=== PATIENT | male | born 1960 | race Caucasian/White ===

== ENCOUNTER → 2017-04-12 | Day surgery (SDC) | payer BC ==
[~2017-04-12] MED LIST: ASPI-130 PO; GENTAMICIN SULFATE 80 MG/2 ML VIAL ONE; KETOROLAC TROMETHAMINE 30 MG/ML (IVP) VIAL IV PUSH ONE; LACTATED RINGER'S 1000 ML INJ 1,000 ML ONE; MIDAZOLAM HCL 2 MG/2 ML VIAL ONE; ONDANSETRON HCL 4 MG/2 ML VIAL IV PUSH ONE; PROPOFOL 100 MG/10 ML INJ IV ONE; ROSU20 PO; SODIUM CHLORIDE 0.9% SOLN 100 ML (PAB) BAG IV ONE
--- NOTE | 2017-04-12 17:49 | TN ---
cc: NIDHI ALVAREZ M.D. DATE OF SURGERY 04/12/2017 PREOPERATIVE DIAGNOSIS Left urethrovesical junction calculus. (ICD - 10 code of N20.1). POSTOPERATIVE DIAGNOSIS Left urethrovesical junction calculus. (ICD - 10 code of N20.1). PROCEDURE Cystourethroscopy with left ureteroscopic holmium laser lithotripsy and stone basket manipulation (CPT code 64832). 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 FINDINGS Findings showed normal urethra. Normal anterior urethra. Prostatic urethra shows mild bilateral hyperplasia with an elevated, very elevated bladder neck. The ureteral orifice on the right shows a somewhat narrowed, round, orifice with some dilatation of the distal ureter consistent with a congenital ureterocele. The left side has similar findings. However, it is more pronounced presumably due to the stone being lodged in that distal ureter. 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 There is some mild trabeculation and few scattered small cellules and small diverticula within the bladder itself. There is no tumors, calcifications, abnormal mucosa. The ureteroscopy showed a jackstone approximately 4-5 mm in the urethrovesical junction. The remainder of the ureter showed some ectasia but unremarkable all the way to the ureteropelvic junction. PROCEDURE The procedure as well as risks and benefits were explained to the patient. Informed consent was obtained, the patient was taken to the major operative theater where he was placed in supine position. The patient was identified as well as the operative site. [place] time-out was performed in standard fashion. At this time general anesthetic and prophylactic intravenous antibiotics consisting of gentamicin 80 mg was administered. After adequate anesthetic he was placed in low dorsolithotomy position, prepped and draped in the usual sterile fashion. At this time a 21-Ukrainian cystoscope with a 30 degrees lens was inserted into the urethra and bladder with the above findings. Due to the abnormal ureteral orifice on that left side, a 70 degree lens with an Albarr n bridge was used to place a 0.035 inches guidewire under fluoroscopic guidance with some difficulty up the ureter and into the renal pelvis under fluoroscopic guidance. The orifice was so small that it essentially only allowed the placement of a single 0.035 inch guidewire. We used a hybrid guidewire for this. At this time the cystoscope was removed and the guidewire. The guidewire was backloaded onto a rigid ureteroscope and the scope was placed into the distal ureter was some manipulation to dilate the ureteral orifice so that a second wire could be placed. At this time the guidewire was left in place and the ureteroscope was removed and then replaced so that a second guidewire could be placed through the working end of the ureteroscope. After the second hybrid guidewire was placed I was able to ride the wires to fully open and dilate the ureteral meatus and enter into the distal ureter. The scope was then passed all the way to dilate the opening to the mid ureter and then back down and the stone was identified. Photo documentation was obtained. A 365 micron holmium laser fiber at a setting of 40 Hz and 0.2 joules was used to break the stone up into three small pieces that were then basketed with a zero-tip nitinol basket and these were basketed out individually and sent for final crystallographic analysis. The ureteroscope was then placed back up the ureter and all the way to the ureteropelvic junction. There was no evidence of any significant trauma and minimal bleeding. Decision was made not to leave a stent since the orifice now was wide open from the dilation. At this time the ureteroscope was removed and a cystoscope was placed back into the bladder. Attention was directed to the orifice. There appeared to be some mildly hematuric urine effluxing. A Bugbee probe was used to fulgurate a tiny bleeding vessel and care was taken not to fulgurate the orifice. At this time after confirming hemostasis and all that the stone fragments were removed, the bladder was decompressed, the cystoscope removed. The patient tolerated the procedure well, emerged from anesthetic without difficulty and transferred to the recovery room in stable condition to be discharged home when criteria is met. There were no obvious complications. MD ROBERTO Arellano/BENEDICTO /5:09 PM /5:21 PM
--- NOTE | 2017-05-02 10:57 | RADRPT ---
EXAM DATE/TIME: 04/12/2017 14:36 [place] COMPARISON: No previous studies available for comparison. INDICATIONS : Left ureteral calculus. Lithotripsy. MEDICAL HISTORY : None. SURGICAL HISTORY : None. ENCOUNTER: Initial ACUITY: 1 day PAIN SCORE: Non-responsive. LOCATION: Left ureter. FINDINGS: A single limited view of the left hemipelvis demonstrates a guidewire in the expected region of the l eft ureter. There is a faint radiopaque density within the expected region of the left distal ureter which likely represents a left distal ureteral calculus. CONCLUSION: Guidewire in the expected region of the left ureter with faint radiopaque density overlying the left distal ureter suggestive of distal ureteral calculus. Akshat Martinez MD on May 02, 2017 at 10:40 Board Certified Radiologist. This report was verified electronically.
== END | disposition home or self-care (01) ==
LOC: ESDC 13:41
PROVIDERS: ATTEND Urology
DX: N20.1 Calculus of ureter (principal)
CPT/HCPCS: 00918; 52353; 74000; 76000; C1769; J1580; J1885; J2250; J2405; J3010; J7120